=== PATIENT | female | born 1985 | race African-American/Black ===

== ENCOUNTER 2018-07-21 12:36 | Emergency (ER) | payer SELFPAY ==
[~2018-07-21] VITALS: Ht 170.2 cm; Wt 63.5 kg
[2018-07-21 12:41] VITALS: BP 131/74
[2018-07-21] MEDS ORDERED: HYDROCODONE/APAP 5/325MG 1 EACH TABLET PO ONE (13:30)
== END 2018-07-21 14:02 | disposition home or self-care (01) ==
LOC: ER 12:36
DX: K04.7 Periapical abscess without sinus (principal); K02.9 Dental caries, unspecified; M32.9 Systemic lupus erythematosus, unspecified
CPT/HCPCS: 99283; A4606